=== PATIENT | male | born 2000 | race Caucasian/White ===

== ENCOUNTER 2022-12-23 12:24 | Emergency (ER) | payer MEDICAID ==
[~2022-12-23] VITALS: Ht 172.7 cm; Wt 79.0 kg
[2022-12-23 12:34] VITALS: TEMP 98.7; O2SAT 97
[2022-12-23] MEDS ORDERED: DEXAMETHASONE 10 MG/ML VIAL PO ONE (12:45)
[2022-12-23] MEDS ORDERED: KETOROLAC 30MG/ML VIAL IM ONE (12:45)
[2022-12-23 12:56] VITALS: BP 120/69; PULSE 92; RESP 16
[2022-12-23] MEDS ORDERED: IBUP-2778 MT (13:51)
[2022-12-23] MEDS ORDERED: ACET-2084 MT (13:51)
[2022-12-23 15:09] LABS: MONOTEST NEGATIVE (NEGATIVE)
== END 2022-12-23 14:06 | disposition home or self-care (01) ==
LOC: ER 12:24
DX: J03.90 Acute tonsillitis, unspecified (principal)
CPT/HCPCS: 87430; 86308; 87070; 87077; 96372; 99283; J1100; J1885; Z7610

== ENCOUNTER 2023-01-22 18:10 | Emergency (ER) | payer MEDICAID ==
[~2023-01-22] VITALS: Ht 167.6 cm; Wt 69.0 kg
[~2023-01-22 18:10] MED LIST: ACET-2084 MT; IBUP-2778 MT
[2023-01-22 18:16] VITALS: BP 139/31; PULSE 114; O2SAT 99
[2023-01-22 19:15] VITALS: TEMP 98.6
[2023-01-22] MEDS ORDERED: ACETAMINOPHEN 325MG TABLET PO ONE (19:15)
[2023-01-22] MEDS ORDERED: IBUPROFEN 400MG TABLET PO ONE (19:15)
[2023-01-22] MEDS ORDERED: TOPUD PO (19:56)
[2023-01-22] MEDS ORDERED: AMOX1TAB16 PO (19:56)
== END 2023-01-22 20:14 | disposition home or self-care (01) ==
LOC: ER 18:10
DX: J02.0 Streptococcal pharyngitis (principal); B34.9 Viral infection, unspecified; Z20.822 Contact with and (suspected) exposure to COVID-19
CPT/HCPCS: 99284; 71045; 87426; 87430; 87070; 87804 ×2; C9803

== ENCOUNTER 2023-10-04 09:42 | Emergency (ER) | payer MEDICAID, OTHER ==
[~2023-10-04] VITALS: Ht 167.6 cm; Wt 75.0 kg
[~2023-10-04 09:42] MED LIST changes: +AMOX1TAB16 PO; +TOPUD PO
[2023-10-04 09:55] VITALS: O2SAT 98
[2023-10-04] MEDS ORDERED: IBUP-2029 MT (10:57)
[2023-10-04 11:22] VITALS: BP 103/69; PULSE 68; RESP 18; TEMP 97.6
== END 2023-10-04 11:30 | disposition home or self-care (01) ==
LOC: ER 10:28
DX: S63.501A Unspecified sprain of right wrist, initial encounter (principal); S50.11XA Contusion of right forearm, initial encounter; W18.39XA Other fall on same level, initial encounter; Y93.89 Activity, other specified; Y92.89 Other specified places as the place of occurrence of the external cause; Y99.8 Other external cause status
CPT/HCPCS: 73080; 73110; 73130; 99284